=== PATIENT | male | born 1960 | race Caucasian/White ===

== ENCOUNTER 2020-02-04 08:54 | Emergency (ER) | payer BC ==
[2020-02-04 09:04] VITALS: BP 128/111
--- NOTE | 2020-02-04 09:17 | ED Physician Documentation ---
History of Present Illness - Stated complaint Stated Complaint: FACE SWELLING - Chief complaint Chief Complaint: General - History obtained from History obtained from: Patient (Healthy 59-year-old gentleman has had several days of mildly painful lesions on the right scalp and forehead. No visual deficit.) Review of Systems Constitutional: reports: Reviewed and negative Ears: reports: Reviewed and negative Nose: reports: Reviewed and negative PD PAST MEDICAL HISTORY - Present Medications Home Medications: Ambulatory Orders Medication Instructions Recorded Confirmed Valacyclovir HCl [Valtrex] 1,000 mg PO TID 7 Days #21 tablet 02/04/20 predniSONE [Deltasone] 20 mg PO [id number] #21 tab 02/04/20 PD ED PE NORMAL - Vitals Vital signs reviewed: Yes - General General: Alert and oriented X 3 (He has a mild case of zoster on the right forehead) - HEENT HEENT: PERRL, EOMI, Other (He has a mild case of zoster on the right forehead, no fluorescein uptake on the right.) - Neuro Neuro: Alert and oriented X 3, appraiser land 2-12 intact, No motor deficit, No sensory deficit, Normal speech Results - Vitals Vitals: Vital Signs - 24 hr 02/04/20 09:00 Temperature 37.0 C Heart Rate 66 Respiratory 16 Rate Blood Pressure 128/111 H O2 Saturation 96 Oxygen O2 Source Room air Departure - Departure Disposition: 01 Home, Self Care Clinical Impression: Herpes zoster Qualifiers: Herpes zoster complications: without complications Qualified Code(s): B02.9 - Zoster without complications Condition: Good Record reviewed to determine appropriate education?: Yes Instructions: ED Shingles Prescriptions: predniSONE [Deltasone] 20 mg PO [id number] #21 tab Valacyclovir HCl [Valtrex] 1,000 mg PO TID 7 Days #21 tablet Comments: Return if you worsen or develop any trouble with vision. Follow-up with your doctor on return home otherwise.
== END 2020-02-04 09:35 | disposition home or self-care (01) ==
LOC: ED 08:54
DX: B02.9 Zoster without complications (principal)
CPT/HCPCS: 99282; 99283